=== PATIENT | female | born 1980 | race Caucasian/White ===

== ENCOUNTER → 2018-04-21 | Outpatient (CLI) | payer BC ==
[~2018-04-21] MED LIST: MIRENA1 EACH IY; NORCO 5/3251 TABLET PO; VITAMIN D32000 UNI1 PO; ZYRTEC10 M3 PO
== END | disposition home or self-care (01) ==
LOC: CDC 08:35
DX: Z01.810 Encounter for preprocedural cardiovascular examination (principal); K43.9 Ventral hernia without obstruction or gangrene
CPT/HCPCS: 93000

== ENCOUNTER 2018-04-26 05:42 | Day surgery (SDC) | payer BC ==
[~2018-04-26] VITALS: Ht 167.6 cm; Wt 99.8 kg
[~2018-04-26 05:42] MED LIST changes: -NORCO 5/3251 TABLET PO
[2018-04-26 06:11] VITALS: BP 135/93
[2018-04-26] MEDS ORDERED: NORCO 5/3251 TABLET PO (08:54)
[2018-04-26 09:55] VITALS: BP 128/78
[2018-04-26 10:46] VITALS: BP 117/75
== END 2018-04-26 10:50 | disposition home or self-care (01) ==
LOC: SDC 05:42
PROC: 0WUF4JZ Supplement Abdominal Wall with Synthetic Substitute, Percutaneous Endoscopic Approach (ICD-10-PCS; principal; 2018-04-26)
DX: K43.9 Ventral hernia without obstruction or gangrene (principal); K21.9 Gastro-esophageal reflux disease without esophagitis; F41.9 Anxiety disorder, unspecified; Z87.891 Personal history of nicotine dependence; Z88.0 Allergy status to penicillin; Z88.8 Allergy status to other drugs, medicaments and biological substances
CPT/HCPCS: J0131; J0690; J1100; J1885; J2250; J2405; J2765; J3010; J7120